=== PATIENT | male | born 1970 | race Hispanic/Latino ===

== ENCOUNTER → 2023-10-27 16:10 | Outpatient (REF) | payer OTHER, SELFPAY | LOC: MRI 3T 16:10 | PROVIDERS: ATTENDING PHYSICIAN Family Medicine; FAMILY PHYSICIAN Family Medicine | DX: Z85.528 Personal history of other malignant neoplasm of kidney (principal); Z90.5 Acquired absence of kidney; K21.9 Gastro-esophageal reflux disease without esophagitis; R20.0 Anesthesia of skin; H53.8 Other visual disturbances; R91.8 Other nonspecific abnormal finding of lung field | CPT/HCPCS: 70553; A9575 ==

== ENCOUNTER → 2024-05-02 09:00 | Outpatient (REF) | payer OTHER, SELFPAY | LOC: HWRAD 09:00 | PROVIDERS: ATTENDING PHYSICIAN Internal Medicine Hematology & Oncology; FAMILY PHYSICIAN Family Medicine | DX: R91.8 Other nonspecific abnormal finding of lung field (principal); C64.9 Malignant neoplasm of unspecified kidney, except renal pelvis; C78.7 Secondary malignant neoplasm of liver and intrahepatic bile duct; K76.89 Other specified diseases of liver | CPT/HCPCS: 71270; 74170; Q9967 ==

== ENCOUNTER 2024-09-12 06:23 | Day surgery (SDC) | payer OTHER, SELFPAY | END 2024-09-12 11:50 | disposition home or self-care (01) | LOC: GI 06:23 | PROVIDERS: ATTENDING PHYSICIAN Internal Medicine Gastroenterology; FAMILY PHYSICIAN Family Medicine | DX: R14.0 Abdominal distension (gaseous) (principal); R19.7 Diarrhea, unspecified; K22.89 Other specified disease of esophagus; K44.9 Diaphragmatic hernia without obstruction or gangrene; R10.9 Unspecified abdominal pain; K29.50 Unspecified chronic gastritis without bleeding; B96.81 Helicobacter pylori [H. pylori] as the cause of diseases classified elsewhere; K31.A11 Gastric intestinal metaplasia without dysplasia, involving the antrum; K20.90 Esophagitis, unspecified without bleeding | CPT/HCPCS: 43239; 88305; 88342 ==

== ENCOUNTER 2025-02-06 06:22 | Day surgery (SDC) | payer OTHER, SELFPAY | END 2025-02-06 13:14 | disposition home or self-care (01) | LOC: GI 06:22 | PROVIDERS: ATTENDING PHYSICIAN Internal Medicine Gastroenterology | DX: K22.70 Barrett's esophagus without dysplasia (principal); K29.70 Gastritis, unspecified, without bleeding; K31.A0 Gastric intestinal metaplasia, unspecified; K22.89 Other specified disease of esophagus; K44.9 Diaphragmatic hernia without obstruction or gangrene | CPT/HCPCS: 43239; 88305; 88342 ==

== ENCOUNTER → 2025-05-15 11:27 | Outpatient (REF) | payer OTHER, SELFPAY | LOC: RAD 11:27 | PROVIDERS: ATTENDING PHYSICIAN Internal Medicine Hematology & Oncology; FAMILY PHYSICIAN Family Medicine | DX: C64.9 Malignant neoplasm of unspecified kidney, except renal pelvis (principal); C78.7 Secondary malignant neoplasm of liver and intrahepatic bile duct; R91.8 Other nonspecific abnormal finding of lung field | CPT/HCPCS: 71260; 74160; Q9967 ==

== ENCOUNTER → 2025-07-03 10:25 | Outpatient (REF) | payer OTHER, SELFPAY | LOC: MRI 3T 10:25 | PROVIDERS: ATTENDING PHYSICIAN Internal Medicine Hematology & Oncology; FAMILY PHYSICIAN Family Medicine | DX: C64.9 Malignant neoplasm of unspecified kidney, except renal pelvis (principal); C78.7 Secondary malignant neoplasm of liver and intrahepatic bile duct; R91.8 Other nonspecific abnormal finding of lung field | CPT/HCPCS: 74183; A9575 ==